=== PATIENT | male | born 1980 | race Caucasian/White ===

== ENCOUNTER 2025-03-06 19:20 | Emergency (ER) | payer BC, SELFPAY ==
[2025-03-06 19:30] VITALS: BP 124/90
[2025-03-06] MEDS: VIBRAMYCIN 100 MG PO (19:59)
--- NOTE | 2025-03-06 20:11 | ED.GENMED ---
History of Present Illness
General
Chief Complaint: Abnormal Lab Value
Source: patient
Exam Limitations: none
Time Seen by Provider: 03/06/25 19:56
Nursing documentation reviewed up to this point in time: agreed with
History of Present Illness
History of Present Illness:
44-year-old male with no reported chronic medical issues presents to the ER for evaluation of positive Lyme test, new rash in the setting of recent fever. Patient reports that 5 days ago he started having fever and fatigue, night sweats. This
persisted for the next few days and on Monday he went to urgent care and was directed to emergency room at [facility]. He says that he was in the ER at [place] and received multiple tests including lab work and a chest x-ray which
was all nondiagnostic. He was told that he likely had a viral syndrome but requested Lyme's test which was sent prior to discharge. He says that he checked his portal online which showed Lyme's test was positive. He says over the past 24 hours he
has developed a rash on the left leg but fever and rest of symptoms seem to have improved. He does not have a primary doctor and so he came to the ER for evaluation with concern for positive Lyme's test.
Review of Systems
Review of Systems
All Other Systems: ROS reviewed and negative except as documented in HPI and ROS
Constitutional: Reports fever (Resolved), fatigue and chills (Resolved)
Respiratory: Denies trouble breathing
Cardiac: Denies chest pain
ABD/GI: Denies abdominal pain
: Denies flank pain
Musculoskeletal: Denies neck pain or back pain
Skin: Reports rash
Neurological: Reports headache
Phy Exam
Physical Exam
Physical Exam:
General: Awake, alert, oriented x3; no acute distress
Head: Normocephalic, atraumatic
Eyes: Conjunctiva normal, sclera anicteric
Throat: Airway intact, handling secretions
Neck: Trachea midline, supple without meningismus
Lungs: Clear to auscultation bilaterally, no wheezing, rales, rhonchi
Heart: Regular rate and rhythm, no murmurs, gallops, or rubs
Neuro: No gross deficits
Skin: Patient has bull's-eye rash on left medial thigh consistent with erythema migrans
Extremities: No edema in extremities, warm and well-perfused
Scores
Heart Failure Risk
Heart Failure Risk Score: Not Applicable
Heart Score for Chest Pain Patients
STEMI patient?: Not applicable
Withdrawal Assessment of Alcohol
Withdrawal Assessment Completed?: Not applicable
Course
Orders/Labs/Results
Orders:
Orders
03/06/25 19:57
Doxycycline [Vibramycin] 100 mg PO NOW STA
Vital Signs
Initial and Last Documented VS:
Initial Vital Signs
Temp Pulse Resp BP Pulse Ox
36.9 C 80 16 124/90 98
03/06/25 19:30 03/06/25 19:30 03/06/25 19:30 03/06/25 19:30 03/06/25 19:30
Last Documented Vital Signs
Temp Pulse Resp BP Pulse Ox
36.9 C 80 16 124/90 98
03/06/25 19:30 03/06/25 19:30 03/06/25 19:30 03/06/25 19:30 03/06/25 19:30
MDM/Problems Addressed
Differential Diagnosis Includes:
Lyme's disease
MDM/Problems Addressed:
44-year-old male presents with syndrome consistent with Lyme's disease. Had febrile illness which seems to have resolved developed a bull's-eye rash on his left leg. He had a Lyme's test at [place] on Monday and when he checked his patient
portal it shows that it is positive�I was able to review this with him at bedside and indeed he had a positive IgM test for Lyme's. His rash is consistent with erythema migrans. Will plan to treat with doxycycline. Stable for discharge. Spoke
about precautions regarding doxycycline and sun exposure in the summer. I encouraged him to establish care with a primary physician. All questions answered.
*Pulse Oximetry
SaO2: 98
Oxygen Mode of Delivery: Room air
Patient hypoxic: no (98%)
*Critical Care Note
Total Time (30-74mins, 75-104mins- exclusive of procedures): Not Applicable
Data Reviewed
Review of Other/Old Records Reveals: Records (Reviewed online portal from [facility])
Source: patient
ED Attending Note
-
Portions of this chart may have been created with voice recognition software.� Occasional wrong word or��sound alike� substitutions may have occurred due to the inherent limitations of voice recognition software.
Discharge Plan
Departure
Patient Disposition: Home (Routine Discharge)
Date of Disposition: 03/06/25
Time of Disposition: 20:10
Patient with high blood pressure during this ER visit?: No
Discharge Problem:
Lyme disease
Instructions: Lyme Disease (DC)
Prescriptions:
New
doxycycline hyclate 100 mg capsule
100 mg PO BID 14 Days Qty: 28 0RF
Referrals:
NONE,* [Family Provider, Internal Medicine]
Activity Restrictions/Additional Instructions:
Thank you for visiting the Emergency Department at [facility].
1. Please schedule a follow up appointment as directed. Call first thing tomorrow morning to make an appointment.
2. If indicated, please take your medications as instructed and indicated on discharge paperwork.
3. If any of your symptoms do not improve, or persist, or become more severe within 6-12 hours, please return to the emergency department for further care.
4. Please return to the emergency department if you develop a headache, neck pain/stiffness, fever greater than 100.4F, chest pain, shortness of breath, persistent nausea, vomiting, slurred speech, difficulty walking, numbness/tingling, weakness,
signs of infection or any other symptoms that are worrisome to you.
Please call [phone] if you have any questions.
Interventions
Interventions:
*Risk Screen - Suicide Last Done: 03/06/25 19:30
*General Assessment Last Done: 03/06/25 19:30
*Neglect/Abuse Screening Last Done: 03/06/25 19:30
*ED- Fall Risk Assessment Last Done: 03/06/25 19:30
*ED COVID-19 Vaccine History Last Done: 03/06/25 19:30
Discharge Date and Time
Print Language: UKRAINIAN
== END 2025-03-06 21:32 | disposition home or self-care (01) ==
LOC: EMR 19:20
PROVIDERS: EMERGENCY PHYSICIAN Emergency Medicine
DX: A69.20 Lyme disease, unspecified (principal)
CPT/HCPCS: 99283